=== PATIENT | male | born 1975 | race Caucasian/White ===

== ENCOUNTER 2018-10-04 14:48 | Observation (INO) | payer OTHER, SELFPAY ==
[2018-10-04] VITALS (7 sets, daily range): BP systolic 122–135; BP diastolic 68–93; PULSE 60–89; RESP 14–18; TEMP 36.3–36.6; O2SAT 96–99; BMI 32.5
--- NOTE | 2018-10-04 | DI.ECHO.S_ITS ---
[facility] +---------+ : : [address] : : : : [place], : : : : [place] [address] : : : : Phone: [phone] [id number] Echocardiogram Report + + :Name: CIERA ALBERT V Study Date: 10/05/2018 Height: 69 in : :[facility] Exam Location: [facility] Weight: 220 lb : : Gender: Male BSA: 2.2 m2 : :: 1975 Age: 43 yrs BP: 126/76 mmHg: :Reason For Study: Syncope/ elevated troponin : :Ordering Physician: [place] : :Hospitalist Performed By: Mer Page : :Referring: KIKI JESUS : + + Interpretation Summary The ejection fraction is estimated to be 60-65%. There is no significant valvular heart disease. Procedure: A two-dimensional transthoracic echocardiogram with color flow and Doppler was performed. The study quality was technically adequate. There is no prior echocardiogram noted for this patient. The patient was in normal sinus rhythm during the exam. Left Ventricle: The left ventricle is normal in size, wall thickness, and systolic function without any focal wall motion abnormalities. The ejection fraction is estimated to be 60-65%. Left ventricular wall motion is normal. Diastolic parameters suggest probable normal left ventricular diastolic function and normal filling pressures. Right Ventricle: The right ventricle is mildly dilated. The right ventricular systolic function is normal. Atria: The left atrium is mildly dilated. Right atrial size is normal. There is no Doppler evidence for an interatrial shunt. Mitral Valve: The mitral valve is normal in structure and function. There is trace mitral regurgitation. Aortic Valve: The aortic valve is trileaflet. The aortic valve opens well. There is trace aortic regurgitation. Tricuspid Valve: The tricuspid valve is normal in structure and function. There is a trace or physiologic amount of tricuspid regurgitation. Right ventricular systolic pressure is estimated to be 16 mmHg plus the clinically estimated CVP which cannot be estimated on this exam. Pulmonic Valve: The pulmonic valve is not well visualized. There is a trace or physiologic amount of pulmonic regurgitation. Great Vessels: The aortic root is normal size. The ascending aorta is mildly enlarged. The pulmonary artery is not well visualized, but is probably normal size. The inferior vena cava was not well visualized. Pericardium/ Pleura There is no pericardial effusion. There is no pleural effusion. MMode/2D Measurements & Calculations LVIDd: 4.4 cm AoV Openin.4 cm LVIDs: 2.6 cm Ao root diam: 3.5 cm IVSd: 0.91 cm asc Aorta Diam: 3.5 cm LVPWd: 1.0 cm LV lozano. diameter/BSA (cm/m^2): 2.0 LV sys. diameter/BSA (cm/m^2): 1.2 FS: 41.4 % EPSS: 0.06 cm LA A2 area: 22.8 cm2 RA long axis: 5.5 cm LA A4 area: 26.5 cm2 RA area: 16.6 cm2 LA length (vol): 6.6 cm RA vol: 42.6 ml LA vol: 77.7 ml RA : 19.8 ml/m2 LA vol index: 36.1 ml/m2 RVD1 (basal): 4.8 cm RVD2 (mid): 4.5 cm TAPSE: 2.2 cm Doppler Measurements & Calculations Ao V2 max: 121.7 cm/sec LVOT Max Jignesh: 99.2 cm/sec Ao V2 mean: 86.7 cm/sec LV V1 max P.9 mmHg Ao V2 VTI: 25.0 cm LV V1 VTI: 20.8 cm Ao max P.9 mmHg Ao mean P.3 mmHg sev ratio: 0.83 MV E max jignesh: 68.7 cm/sec MV A max jignesh: 59.9 cm/sec MV E/A: 1.1 Med Peak E' Jignesh: 7.5 cm/sec E/E' med: 9.1 Lat Peak E' Jignesh: 11.4 cm/sec E/E' lat: 6.1 E/e' average: 7.6 MV dec time: 0.16 sec TR max jignesh: 201.8 cm/sec MV P1/2t: 48.6 msec TR max P.3 mmHg MVA(P1/2t): 4.5 cm2 PA V2 max: 62.6 cm/sec PA V2 mean: 46.2 cm/sec PA mean P.92 mmHg PA Accel Time: 0.13 sec Reading Physician:02:46 PM
--- NOTE | 2018-10-04 17:06 | DI.RAD.S_ITS ---
PROCEDURE: XR CHEST 2V INDICATIONS: syncope TECHNIQUE: 2 views of the chest were acquired. COMPARISON: None. FINDINGS: Surgical changes and devices: None. Lungs and pleura: An incomplete inspiratory result is noted, causing a crowded appearance to the lung markings. No focal infiltrates are seen. No pneumothorax or significant pleural effusions are seen. Mediastinum: Mediastinal contours are normal. Heart size is normal. Bones and chest wall: No suspicious bony abnormalities. Soft tissues appear unremarkable. IMPRESSION: No acute cardiopulmonary process is seen. Dictated by: Wagner Dai M.D. on 10/04/2018 at 16:32 Approved by: Wagner Dai M.D. on 10/04/2018 at 16:33
[2018-10-04 17:07] LABS: Add Manual Diff / Slide Review NO; Basophils Absolute Auto 0 /uL (0-100); Basophils Percent Auto 0.2 % (0-2); Eosinophils Absolute Auto 0 /uL (0-450); Eosinophils Percent Auto 0.1 % (2-4); Hematocrit 51.2 % (41-53); Hemoglobin 17.5 g/dL (13.5-17.5); Lymphocytes Absolute Auto 1200 /uL (1100-4500); Lymphocytes Percent Auto 6.2 % (25-40); Mean Corpuscular HGB Conc 34.3 % (30-36); Mean Corpuscular Hemoglobin 31.9 PG (26-34); Monocytes Absolute Auto 1600 /uL (0-900); Monocytes Percent Auto 8.1 % (3-14); Neutrophils Absolute Auto 16500 /uL (1500-7000); Neutrophils Percent Auto 85.4 % (50-75); Platelet Count 388 X10^3/uL (150-400); Red Cell Distribution Width 12.8 % (11.6-14.8); White Blood Cell Count 19.3 X10^3/uL (4.5-11.0)
[2018-10-04 17:10] LABS: Alanine Aminotransferase 46 IU/L (21-72); Albumin 3.9 g/dL (3.5-5.0); Albumin Globulin Ratio 1.3 (1.0-2.8); Alkaline Phosphatase 57 U/L (38-126); Aspartate Aminotransferase 27 IU/L (17-59); Bilirubin Total 0.7 mg/dL (0.2-1.3); Blood Urea Nitrogen 17 mg/dL (9-20); Calcium 9.1 mg/dL (8.4-10.2); Carbon Dioxide 23 mmol/L (22-32); Chloride 108 mmol/L (98-107); Estimated Glomerular Filt Rate > 60.0 mL/min (>60); Glucose 107 mg/dL (70-100); HEMOLYSIS < 15 (0-50); Potassium 3.9 mmol/L (3.4-5.1); Sodium 140 mmol/L (137-145); Total Protein 6.9 g/dL (6.3-8.2)
[2018-10-04] MEDS: SODIUM CHLORIDE 0.9% 1,000 ML 1000 ML IV (17:15)
[2018-10-04 17:21] LABS: Troponin I 0.027 ng/mL (0.01-0.034)
[2018-10-04 18:03] LABS: Creatine Kinase 54 U/L (55-170)
[2018-10-04 18:16] LABS: Troponin I 0.045 ng/mL (0.01-0.034)
[2018-10-04] MEDS: ASPIRIN 81 MG TAB 324 MG PO (18:35)
[2018-10-04 19:49] LABS: Add Manual Diff / Slide Review NO; Basophils Absolute Auto 100 /uL (0-100); Basophils Percent Auto 0.6 % (0-2); Eosinophils Absolute Auto 0 /uL (0-450); Eosinophils Percent Auto 0.1 % (2-4); Hematocrit 47.3 % (41-53); Hemoglobin 16.2 g/dL (13.5-17.5); Lymphocytes Absolute Auto 1700 /uL (1100-4500); Mean Corpuscular HGB Conc 34.3 % (30-36); Mean Corpuscular Hemoglobin 31.7 PG (26-34); Mean Corpuscular Volume 92.3 fL (80-100); Monocytes Absolute Auto 900 /uL (0-900); Monocytes Percent Auto 7.5 % (3-14); Neutrophils Absolute Auto 9500 /uL (1500-7000); Neutrophils Percent Auto 77.8 % (50-75); Platelet Count 349 X10^3/uL (150-400); Red Blood Cell Count 5.12 X10^6/uL (4.5-5.9); Red Cell Distribution Width 12.6 % (11.6-14.8); White Blood Cell Count 12.2 X10^3/uL (4.5-11.0)
[2018-10-04 20:02] LABS: Creatine Kinase 51 U/L (55-170)
--- NOTE | 2018-10-04 20:14 | ED_ITS ---
HPI - Syncope <CYNDIE Reilly - Last Filed: 10/04/18 21:18> General Chief Complaint: Syncope Stated Complaint: Syncope Time Seen by Provider: 10/04/18 16:49 Source: patient Mode of arrival: ambulatory Limitations: no limitations History of Present Illness HPI narrative: The patient is a 43-year-old male nonsmoker with history of elevated blood sugar presents with a chief complaint of syncope after PT earlier today. He states he ran a mile and a half, felt really warm and tried to go down. Then he syncopized for 10 seconds several times. He denies any chest pain shortness of breath fever nausea vomiting or diarrhea. He denies any nausea vomiting diarrhea fever chest pain shortness of breath palpitations or chest heaviness. He denies any associated symptoms. He denies any symptoms since his previous syncope. He states when he did syncopized he did not hit his head. Related Data Home Medications Medication Instructions Recorded Confirmed No Known Home Medications 10/04/18 10/04/18 Allergies Allergy/AdvReac Type Severity Reaction Status Date / Time No Known Drug Allergies Allergy Verified 10/04/18 14:55 Review of Systems <CYNDIE Reilly - Last Filed: 10/04/18 21:18> Review of Systems GENERAL: Denies chills, fatigue, malaise, fever, sweats. HEENT: Denies sinus pain, ear pain, sore throat, difficulty swallowing, dizziness. RESPIRATORY: Denies dyspnea, cough, wheezing, hemoptysis, sputum. CARDIOVASCULAR: See HPI GASTROINTESTINAL: Denies nausea, vomiting, abdominal pain, diarrhea, constipation, melena. : Denies dysuria, frequency, incontinence, hematuria, urinary retention. MUSCULOSKELETAL: denies weakness, joint pain, or bony pain SKIN: Denies rash, skin lesions, or other NEUROLOGIC: Denies weakness, headache, numbness, change in speech, confusion, seizures, incoordination. PSYCHIATRIC: No concerning psychosocial issues. 12 point review of systems is negative except for those stated above PFSH <CYNDIE Reilly - Last Filed: 10/04/18 21:18> Social History household members: other Smoking Status: Never smoker Social History household members: other Smoking Status: Never smoker Exam <ROSSY Reilly - Last Filed: 10/04/18 21:18> Narrative Exam Narrative: GENERAL: This is a well-nourished, well-developed patient, no acute distress HEAD: Atraumatic. Normocephalic. No temporal or scalp tenderness. EYES: Pupils equal round and reactive. Extraocular motions intact. No scleral icterus. No injection or drainage. ENT: Nose without bleeding, purulent drainage or septal hematoma. Throat without erythema, tonsillar hypertrophy or exudate. Uvula midline. Airway patent. NECK: Trachea midline. No JVD or lymphadenopathy. Supple, nontender, no meningeal signs. CARDIOVASCULAR: Regular rate and rhythm without murmurs, gallops, or rubs. RESPIRATORY: Clear to auscultation. Breath sounds equal bilaterally. No wheezes, rales, or rhonchi. GASTROINTESTINAL: Abdomen soft, non-tender, nondistended. No hepato- splenomegaly, or palpable masses. No guarding. EXTREMITIES: No clubbing, cyanosis, or edema. No joint tenderness, effusion, or edema noted. BACK: Nontender without deformity or crepitance. No flank tenderness. NEURO: AOx3. No slurred speech. Cranial nerves grossly intact. SKIN: No rash or erythema. Initial Vital Signs Initial Vital Signs: Vital Signs Temperature 97.9 F 10/04/18 15:18 Pulse Rate 89 10/04/18 15:18 Respiratory Rate 18 10/04/18 15:18 Blood Pressure 133/81 10/04/18 15:18 Pulse Oximetry 98 10/04/18 15:18 <Socrates Colvin DO - Last Filed: 10/04/18 22:24> Initial Vital Signs Initial Vital Signs: Vital Signs Temperature 97.9 F 10/04/18 15:18 Pulse Rate 89 10/04/18 15:18 Respiratory Rate 18 10/04/18 15:18 Blood Pressure 133/81 10/04/18 15:18 Pulse Oximetry 98 10/04/18 15:18 Course <CYNDIE Reilly - Last Filed: 10/04/18 21:18> Orders Ordered: ED Orders 10/04/18 16:29 EKG-12 Lead Stat 10/04/18 16:35 Complete Blood Count AUTO DIFF Stat Comprehensive Metabolic Panel Stat Troponin I Stat 10/04/18 17:06 XR chest 2V Stat 10/04/18 17:45 Troponin & CK Cardiac Panel Stat 10/04/18 19:30 Complete Blood Count AUTO DIFF Stat Troponin & CK Cardiac Panel Stat Discontinued Medications Aspirin (Aspirin Chew) 324 mg PO NOW ONE Stop: 10/04/18 18:25 Last Admin: 10/04/18 18:35 Dose: 324 mg Sodium Chloride (Normal Saline 0.9%) 1,000 mls @ 1,000 mls/hr IV BOLUS ONE Stop: 10/04/18 18:08 Last Infusion: 10/04/18 20:37 Dose: 0 mls/hr Admin: 10/04/18 17:15 Dose: 1,000 mls/hr Vital Signs - 8 hr 10/04/18 15:18 10/04/18 18:36 10/04/18 19:00 Temperature 97.9 F Pulse Rate 89 82 73 Respiratory Rate 18 14 18 Blood Pressure 133/81 Blood Pressure [Right Arm] 125/68 129/75 Pulse Oximetry 98 98 98 10/04/18 19:30 10/04/18 20:31 10/04/18 21:15 Temperature 97.6 F Pulse Rate 69 66 65 Respiratory Rate 18 18 18 Blood Pressure 135/82 Blood Pressure [Right Arm] 122/74 126/90 Pulse Oximetry 96 99 98 <Socrates Colvin, DO - Last Filed: 10/04/18 22:24> Orders Ordered: ED Orders 10/04/18 16:29 EKG-12 Lead Stat 10/04/18 16:35 Complete Blood Count AUTO DIFF Stat Comprehensive Metabolic Panel Stat Troponin I Stat 10/04/18 17:06 XR chest 2V Stat 10/04/18 17:45 Troponin & CK Cardiac Panel Stat 10/04/18 19:30 Complete Blood Count AUTO DIFF Stat Troponin & CK Cardiac Panel Stat Discontinued Medications Aspirin (Aspirin Chew) 324 mg PO NOW ONE Stop: 10/04/18 18:25 Last Admin: 10/04/18 18:35 Dose: 324 mg Sodium Chloride (Normal Saline 0.9%) 1,000 mls @ 1,000 mls/hr IV BOLUS ONE Stop: 10/04/18 18:08 Last Infusion: 10/04/18 20:37 Dose: 0 mls/hr Admin: 10/04/18 17:15 Dose: 1,000 mls/hr Vital Signs - 8 hr 10/04/18 15:18 10/04/18 18:36 10/04/18 19:00 Temperature 97.9 F Pulse Rate 89 82 73 Respiratory Rate 18 14 18 Blood Pressure 133/81 Blood Pressure [Right Arm] 125/68 129/75 Pulse Oximetry 98 98 98 10/04/18 19:30 10/04/18 20:31 10/04/18 21:15 Temperature 97.6 F Pulse Rate 69 66 65 Respiratory Rate 18 18 18 Blood Pressure 135/82 Blood Pressure [Right Arm] 122/74 126/90 Pulse Oximetry 96 99 98 MDM - Syncope <SHAYNA Reilly-BC - Last Filed: 10/04/18 21:18> Lab Data Result diagrams: 10/04/18 19:30 10/04/18 16:35 Lab Results 10/04/18 10/04/18 10/04/18 Range/Units 16:35 16:35 17:45 WBC 19.3 H (4.5-11.0) X10^3/uL RBC 5.50 (4.5-5.9) X10^6/uL Hgb 17.5 (13.5-17.5) g/dL Hct 51.2 (41-53) % MCV 93.0 (80-100) fL MCH 31.9 (26-34) PG MCHC 34.3 (30-36) % RDW 12.8 (11.6-14.8) % Plt Count 388 (150-400) X10^3/uL Neut % (Auto) 85.4 H (50-75) % Lymph % (Auto) 6.2 L (25-40) % Powell % (Auto) 8.1 (3-14) % Eos % (Auto) 0.1 L (2-4) % Baso % (Auto) 0.2 (0-2) % Neut # (Auto) 74207 H (2412-2610) /uL Lymph # (Auto) 1200 (4783-8359) /uL Powell # (Auto) 1600 H (0-900) /uL Eos # (Auto) 0 (0-450) /uL Baso # (Auto) 0 (0-100) /uL Sodium 140 (137-145) mmol/L Potassium 3.9 (3.4-5.1) mmol/L Chloride 108 H (98-107) mmol/L Carbon Dioxide 23 (22-32) mmol/L BUN 17 (9-20) mg/dL Creatinine 1.00 (0.66-1.25) mg/dL Estimated GFR > 60.0 (>60) mL/min BUN/Creatinine Ratio 17.0 (6-22) Glucose 107 H (70-100) mg/dL Calcium 9.1 (8.4-10.2) mg/dL Total Bilirubin 0.7 (0.2-1.3) mg/dL AST 27 (17-59) IU/L ALT 46 (21-72) IU/L Alkaline Phosphatase 57 (38-126) U/L Total Creatine Kinase 54 L (55-170) U/L CK-MB (CK-2) TNP CK-MB (CK-2) Rel Index TNP Troponin I 0.027 0.045 H (0.01-0.034) ng/mL Total Protein 6.9 (6.3-8.2) g/dL Albumin 3.9 (3.5-5.0) g/dL Globulin 3.0 (1.7-4.1) g/dL Albumin/Globulin Ratio 1.3 (1.0-2.8) 10/04/18 10/04/18 Range/Units 19:30 19:30 WBC 12.2 H (4.5-11.0) X10^3/uL RBC 5.12 (4.5-5.9) X10^6/uL Hgb 16.2 (13.5-17.5) g/dL Hct 47.3 (41-53) % MCV 92.3 (80-100) fL MCH 31.7 (26-34) PG MCHC 34.3 (30-36) % RDW 12.6 (11.6-14.8) % Plt Count 349 (150-400) X10^3/uL Neut % (Auto) 77.8 H (50-75) % Lymph % (Auto) 14.0 L (25-40) % Powell % (Auto) 7.5 (3-14) % Eos % (Auto) 0.1 L (2-4) % Baso % (Auto) 0.6 (0-2) % Neut # (Auto) 9500 H (0807-9129) /uL Lymph # (Auto) 1700 (3902-5118) /uL Powell # (Auto) 900 (0-900) /uL Eos # (Auto) 0 (0-450) /uL Baso # (Auto) 100 (0-100) /uL Sodium (137-145) mmol/L Potassium (3.4-5.1) mmol/L Chloride (98-107) mmol/L Carbon Dioxide (22-32) mmol/L BUN (9-20) mg/dL Creatinine (0.66-1.25) mg/dL Estimated GFR (>60) mL/min BUN/Creatinine Ratio (6-22) Glucose (70-100) mg/dL Calcium (8.4-10.2) mg/dL Total Bilirubin (0.2-1.3) mg/dL AST (17-59) IU/L ALT (21-72) IU/L Alkaline Phosphatase (38-126) U/L Total Creatine Kinase 51 L (55-170) U/L CK-MB (CK-2) TNP CK-MB (CK-2) Rel Index TNP Troponin I 0.050 H (0.01-0.034) ng/mL Total Protein (6.3-8.2) g/dL Albumin (3.5-5.0) g/dL Globulin (1.7-4.1) g/dL Albumin/Globulin Ratio (1.0-2.8) Urine Dip Bedside Urine Glucose Negative Bedside Urine Bilirubin - Negative Bedside Urine Ketone - Negative Urine Specific [place] 1.030 Bedside Urine Occult Blood - Negative Bedside Urine pH 5.5 Bedside Urine Protein +/- 15 Bedside Urine Urobilinogen - Negative Bedside Urine Nitrite - Negative Bedside Urine Leukocytes - Negative Esterase Imaging Data Chest x-ray: Radiologist's impression: Bhavya Joseph V 43 M [address] [address] XRay Report Signed Patient: Bhavya Joseph VMR#: [id number] : 1975Acct:[id number] Age/Sex: 43 / MDate of Service: 10/04/18 Loc: ED Accession Number: [id number] Procedure: XR chest 2V Ordering Provider: Юлия Orr WEB APPLICATIONS ADMINISTRATOR- PROCEDURE: XR CHEST 2V INDICATIONS: syncope TECHNIQUE: 2 views of the chest were acquired. COMPARISON: None. FINDINGS: Surgical changes and devices: None. Lungs and pleura: An incomplete inspiratory result is noted, causing a crowded appearance to the lung markings. No focal infiltrates are seen. No pneumothorax or significant pleural effusions are seen. Mediastinum: Mediastinal contours are normal. Heart size is normal. Bones and chest wall: No suspicious bony abnormalities. Soft tissues appear unremarkable. IMPRESSION: No acute cardiopulmonary process is seen. Dictated by: Wagner Dai M.D. on 10/04/2018 at 16:32 Approved by: Wagner Dai M.D. on 10/04/2018 at 16:33 ECG Data Attestation: I personally reviewed and interpreted this ECG as follows: Interpretation: Sinus rhythm. Ventricular rate 96. No ST elevation or depression. No ectopy. Viewed by Dr. Barrett KRISHNAMURTHY Narrative Medical decision making narrative: The patient is a 43-year-old male who presents after an episode of syncope. He is asymptomatic upon arrival to the emergency department. He denies any chest pain shortness of breath or symptoms at this point time. He does have an indeterminate troponin. This given his combination of syncope and troponin of 0.05, I contacted our hospitalist VINITA for admission. Given the patient's syncope is slightly elevated troponin, I feel he needs more workup at this point time. He is hemodynamically stable and pain-free throughout his stay in the emergency department, remaining on telemetry without incident. The patient was kindly admitted to the hospitalist Alhaji TALAMANTES for further evaluation including trending troponins as well as an echocardiogram and possible stress test. Patient has no questions or concerns upon admission. <Socrates Colvin, DO - Last Filed: 10/04/18 22:24> Lab Data Lab Results 10/04/18 10/04/18 10/04/18 Range/Units 16:35 16:35 17:45 WBC 19.3 H (4.5-11.0) X10^3/uL RBC 5.50 (4.5-5.9) X10^6/uL Hgb 17.5 (13.5-17.5) g/dL Hct 51.2 (41-53) % MCV 93.0 (80-100) fL MCH 31.9 (26-34) PG MCHC 34.3 (30-36) % RDW 12.8 (11.6-14.8) % Plt Count 388 (150-400) X10^3/uL Neut % (Auto) 85.4 H (50-75) % Lymph % (Auto) 6.2 L (25-40) % Powell % (Auto) 8.1 (3-14) % Eos % (Auto) 0.1 L (2-4) % Baso % (Auto) 0.2 (0-2) % Neut # (Auto) 14288 H (3462-0672) /uL Lymph # (Auto) 1200 (1552-2687) /uL Powell # (Auto) 1600 H (0-900) /uL Eos # (Auto) 0 (0-450) /uL Baso # (Auto) 0 (0-100) /uL Sodium 140 (137-145) mmol/L Potassium 3.9 (3.4-5.1) mmol/L Chloride 108 H (98-107) mmol/L Carbon Dioxide 23 (22-32) mmol/L BUN 17 (9-20) mg/dL Creatinine 1.00 (0.66-1.25) mg/dL Estimated GFR > 60.0 (>60) mL/min BUN/Creatinine Ratio 17.0 (6-22) Glucose 107 H (70-100) mg/dL Calcium 9.1 (8.4-10.2) mg/dL Total Bilirubin 0.7 (0.2-1.3) mg/dL AST 27 (17-59) IU/L ALT 46 (21-72) IU/L Alkaline Phosphatase 57 (38-126) U/L Total Creatine Kinase 54 L (55-170) U/L CK-MB (CK-2) TNP CK-MB (CK-2) Rel Index TNP Troponin I 0.027 0.045 H (0.01-0.034) ng/mL Total Protein 6.9 (6.3-8.2) g/dL Albumin 3.9 (3.5-5.0) g/dL Globulin 3.0 (1.7-4.1) g/dL Albumin/Globulin Ratio 1.3 (1.0-2.8) 10/04/18 10/04/18 Range/Units 19:30 19:30 WBC 12.2 H (4.5-11.0) X10^3/uL RBC 5.12 (4.5-5.9) X10^6/uL Hgb 16.2 (13.5-17.5) g/dL Hct 47.3 (41-53) % MCV 92.3 (80-100) fL MCH 31.7 (26-34) PG MCHC 34.3 (30-36) % RDW 12.6 (11.6-14.8) % Plt Count 349 (150-400) X10^3/uL Neut % (Auto) 77.8 H (50-75) % Lymph % (Auto) 14.0 L (25-40) % Powell % (Auto) 7.5 (3-14) % Eos % (Auto) 0.1 L (2-4) % Baso % (Auto) 0.6 (0-2) % Neut # (Auto) 9500 H (4742-1647) /uL Lymph # (Auto) 1700 (5190-2515) /uL Powell # (Auto) 900 (0-900) /uL Eos # (Auto) 0 (0-450) /uL Baso # (Auto) 100 (0-100) /uL Sodium (137-145) mmol/L Potassium (3.4-5.1) mmol/L Chloride (98-107) mmol/L Carbon Dioxide (22-32) mmol/L BUN (9-20) mg/dL Creatinine (0.66-1.25) mg/dL Estimated GFR (>60) mL/min BUN/Creatinine Ratio (6-22) Glucose (70-100) mg/dL Calcium (8.4-10.2) mg/dL Total Bilirubin (0.2-1.3) mg/dL AST (17-59) IU/L ALT (21-72) IU/L Alkaline Phosphatase (38-126) U/L Total Creatine Kinase 51 L (55-170) U/L CK-MB (CK-2) TNP CK-MB (CK-2) Rel Index TNP Troponin I 0.050 H (0.01-0.034) ng/mL Total Protein (6.3-8.2) g/dL Albumin (3.5-5.0) g/dL Globulin (1.7-4.1) g/dL Albumin/Globulin Ratio (1.0-2.8) Urine Dip Bedside Urine Glucose Negative Bedside Urine Bilirubin - Negative Bedside Urine Ketone - Negative Urine Specific [place] 1.030 Bedside Urine Occult Blood - Negative Bedside Urine pH 5.5 Bedside Urine Protein +/- 15 Bedside Urine Urobilinogen - Negative Bedside Urine Nitrite - Negative Bedside Urine Leukocytes - Negative Esterase Discharge Plan Departure Patient Disposition: Admitted as Observation Clinical Impression: Elevated troponin Syncope Qualifiers: Syncope type: unspecified Qualified Code(s): R55 - Syncope and collapse Discharge Date/Time: 10/04/18 21:25 Interventions: ED Discharge Assessment Last Done: 10/04/18 21:10 Admit Date/Time: 10/04/18 20:39 Admit Provider: Harlan Mane <Socrates Colvin DO - Last Filed: 10/04/18 22:24> Cosign ED Attending Cosignature Attestation: I was available for consultation during this patient's emergency department encounter
--- NOTE | 2018-10-04 22:44 | PC.NURSE ---
Pt arrived from the ED @ 2114 A/O x 3, had episode of syncope earlier in day. Denies any discomfort. Tele in place. HL LFA intact/patent. Pt oriented to room ans call system. Call light w/in reach, calls appropriately for needs.
[2018-10-04 23:02] LABS: Magnesium 2.2 mg/dL (1.6-2.3)
--- NOTE | 2018-10-04 23:05 | PM.HP.1 ---
History of Present Illness Time Patient Seen: 21:51 Chief complaint: Syncope Narrative: Bhavya sweeney is a 43-year-old male patient with a past medical history only significant for prediabetes and heat rash presents to the emergency department following 2 syncopal episodes. The [place] after completing approximately a mi and a half he began to feel overheated. He reports this to be a recurrent phenomenon during which time he will develop a heat rash. He has previously been told to take a lukewarm shower cool slowly which he did after which he developed lower extremity flushing and facial pallor. The patient states he had decreasing vision, felt weak and became lightheaded. His green jobs trainer was with him and after sitting down he became had a witnessed syncopal episode reportedly approximately 10 seconds for which he spontaneously recovered and then had a 2nd occurrence lasting approximately 20 seconds. During this time the patient had no chest pain or palpitations, shortness of breath cough or wheezing. The patient is had no prodromal symptoms but does report that he had cold symptoms 2 weeks ago including sore throat while snowboarding in [facility] at altitude. The patient has since been snowboarding at [facility] in [place]. The patient denies previous episodes of syncope and has had no headaches, fevers or chills, abdominal pain nausea or vomiting, constipation or diarrhea. In the emergency department the patient is found to be afebrile at 97.9 a heart rate 89 and blood pressure of 133/81. He is 98% oxygen saturation on room air. He had a chest x-ray taken which shows no acute cardiopulmonary disease. His 12 lead EKG does reveal small Q-waves in leads 3 and AVF. On CBC he does have an elevated WBC count at 19.3 on admission which is reduced on recheck down to 12.2. His chemistries are within normal range with a nonfasting glucose 107. His CK is low and initial had a negative troponin and on recheck was found to be elevated at 0.045 and the 3rd troponin at 0.050. The patient is admitted for further monitoring and evaluation of syncope and elevated serum troponin Patient History Medical History (Updated 10/04/18 @ 23:13 by VINITA Correia) Heat rash (Acute) Pre-diabetes (Acute) Surgical History History of ankle surgery (Acute) History of nasal surgery (Acute) History of surgery on wrist (Acute) Status post left foot surgery (Acute) Family History (Updated 10/04/18 @ 23:10 by VINITA Correia) Father Diabetes mellitus Mother In good health Brother In good health Son In good health Social History household members: other Smoking Status: Never smoker Family & Social History Family History (Updated 10/04/18 @ 23:10 by VINITA Correia) Father Diabetes mellitus Mother In good health Brother In good health Son In good health Social History: household members other Prior Living Arrangements House Safety & Behavioral: Feels Safe in Current Yes Environment Been Physically Hurt or No Threatened By a Person Suicidal Ideation Description None Suicide Plan Description No Plan Tobacco & Substance use: Smoking Status Never smoker alcohol intake frequency holiday/special occasion Substance Use Type does not use Comment: 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 His father is a type 1 diabetic but his mother and brothers and son are all in good health. Smoking: Patient has never smoked Alcohol: Patient consumes a couple of drinks per week Substance use: Patient denies recreation pharmaceuticals herbal or cannabis products Advanced directives: The patient does not have an advanced directive however he is full code and designates his to be surrogate decision maker. Meds Home Medications Medication Instructions Recorded Confirmed Type No Known Home Medications 10/04/18 10/04/18 History Allergies Allergy/AdvReac Type Severity Reaction Status Date / Time No Known Drug Allergies Allergy Verified 10/04/18 14:55 Review of Systems Review of Systems All systems reviewed & are unremarkable except as noted in HPI and below Exam Vital Signs (past 8 hours): - 10/04/18 15:18 10/04/18 18:36 10/04/18 19:00 Temperature 97.9 F Pulse Rate 89 82 73 Respiratory Rate 18 14 18 Blood Pressure 133/81 Blood Pressure [Right Arm] 125/68 129/75 Pulse Oximetry 98 98 98 10/04/18 19:30 10/04/18 20:31 10/04/18 21:15 Temperature 97.6 F Pulse Rate 69 66 65 Respiratory Rate 18 18 18 Blood Pressure 135/82 Blood Pressure [Right Arm] 122/74 126/90 Pulse Oximetry 96 99 98 Oxygen Delivery Method Room Air Narrative Exam Narrative: GENERAL APPEARANCE: well developed, overweight male with BMI of 32.5 who is afebrile and in no acute distress. HEAD: Normocephalic, atraumatic, no scalp lesions. EYES: pupils equal, round, reactive to light and accommodation, sclera non-icteric, extraocular movement intact . EARS: normal external structures, no ear pain NOSE: sinuses non tender to percussion, no rhinorrhea ORAL CAVITY: mucosa moist without lesions or exudate, palate normal, tongue in midline. THROAT: normal, no erythema, no exudate, pharynx normal, uvula midline. NECK/THYROID: neck supple, no jugular venous distention, no carotid bruit, no thyromegaly, trachea midline. LYMPH NODES: no cervical or supraclavicular lymphadenopathy. SKIN: warm and dry, no suspicious lesions, no rashes, good turgor. HEART: regular rate and rhythm, S1-S2 without murmur, no rubs or gallops, brisk capillary refill, no edema LUNGS: clear to auscultation bilaterally, no coarseness crackles or wheezing, no cough present CHEST: Symmetrical movement, no accessory muscle use, no pain to AP and lateral compression. ABDOMEN: Soft, round, no epigastric or abdominal tenderness on palpation, no guarding or peritoneal signs, no organomegaly, no flank or suprapubic tenderness, active bowel tones. BACK: Normal curvature, nontender to palpation, no CVA tenderness on percussion EXTREMITIES: moves all extremities, strength is 5/5 and symmetrical, well perfused. NEUROLOGIC: AAO x4, no focal neurologic deficits, cranial nerves II-XII grossly intact , motor strength normal upper and lower extremities, sensory exam intact to light touch, hearing grossly normal to speech. PSYCH: alert, cognitive function intact, good eye contact, stable mood with congruent affect Objective Labs Result Diagrams: 10/04/18 19:30 10/04/18 16:35 Labs: Laboratory Results - last 24 hr 10/04/18 10/04/18 10/04/18 16:35 16:35 17:45 WBC 19.3 H RBC 5.50 Hgb 17.5 Hct 51.2 MCV 93.0 MCH 31.9 MCHC 34.3 RDW 12.8 Plt Count 388 Neut % (Auto) 85.4 H Lymph % (Auto) 6.2 L [place] % (Auto) 8.1 Eos % (Auto) 0.1 L Baso % (Auto) 0.2 Neut # (Auto) 08090 H Lymph # (Auto) 1200 [place] # (Auto) 1600 H Eos # (Auto) 0 Baso # (Auto) 0 Sodium 140 Potassium 3.9 Chloride 108 H Carbon Dioxide 23 BUN 17 Creatinine 1.00 Estimated GFR > 60.0 BUN/Creatinine Ratio 17.0 Glucose 107 H Calcium 9.1 Magnesium Total Bilirubin 0.7 AST 27 ALT 46 Alkaline Phosphatase 57 Total Creatine Kinase 54 L CK-MB (CK-2) TNP CK-MB (CK-2) Rel Index TNP Troponin I 0.027 0.045 H Total Protein 6.9 Albumin 3.9 Globulin 3.0 Albumin/Globulin Ratio 1.3 10/04/18 10/04/18 10/04/18 19:30 19:30 19:43 WBC 12.2 H RBC 5.12 Hgb 16.2 Hct 47.3 MCV 92.3 MCH 31.7 MCHC 34.3 RDW 12.6 Plt Count 349 Neut % (Auto) 77.8 H Lymph % (Auto) 14.0 L [place] % (Auto) 7.5 Eos % (Auto) 0.1 L Baso % (Auto) 0.6 Neut # (Auto) 9500 H Lymph # (Auto) 1700 [place] # (Auto) 900 Eos # (Auto) 0 Baso # (Auto) 100 Sodium Potassium Chloride Carbon Dioxide BUN Creatinine Estimated GFR BUN/Creatinine Ratio Glucose Calcium Magnesium 2.2 Total Bilirubin AST ALT Alkaline Phosphatase Total Creatine Kinase 51 L CK-MB (CK-2) TNP CK-MB (CK-2) Rel Index TNP Troponin I 0.050 H Total Protein Albumin Globulin Albumin/Globulin Ratio Assessment & Plan Assessment & Plan narrative: Patient is a 43-year-old male who was admitted to the hospital for further evaluation syncope and elevated serum troponin. 1. Syncopal episode, acute -patient with 2 witnessed syncopal episodes brief in duration, 1st was 10 seconds, 2nd was 20 seconds. Patient spontaneously recovered. -no prodromal body flushing facial pallor occurring immediately post exercise. No prior history syncope. -no anemia, electrolytes and renal function are within normal limits, nonfasting glucose 107. -12 lead EKG without evidence of ectopy bundle-branch block or ischemia, Q-waves in lead 3 and AVF. Patient reports decreased exercise tolerance over the last 2 years. -recent travel from [place] in last 2 weeks. No complaints of chest pain or shortness of breath. Will obtain a D-dimer. -will track troponins, obtain echocardiogram and nuclear med stress test. 2. Elevated serum troponin, acute -patient denies chest pain, palpitations or shortness of breath -no history hypertension, hyperlipidemia but has history of pre diabetes. No family cardiac history. -serial troponins: 0.027, 0 0.045, 0.050. -12 lead EKG without ectopy, block or ischemia, Q-waves in lead 3 and AVF. -follow troponin, obtain lipid panel -echocardiogram and stress test as above. 3. Prediabetes, chronic -patient reports blood sugar manage with diet, on no anti hyperglycemic medication -patient overweight with BMI of 32.5 -serum glucose on admission testing is 107 mg dL. -will recheck chemistries in the morning and obtain hemoglobin A1c. The patient is admitted to the hospital following 2 syncopal episodes and need for ongoing monitoring and evaluation. The patient is admitted observation status with expected length of stay to be less than 2 midnights. Scores GCS Leta coma scale eye opening: Spontaneous Leta coma scale verbal response: Orientated Leta coma scale motor response: Obey commands Leta coma scale total score: 15 Quality VTE Deep Vein Thrombosis/Pulmonary Embolism Present on Admission: No
[2018-10-04 23:56] LABS: D Dimer 1543 ng/mL (<230)
[2018-10-05] VITALS: O2SAT 97
--- NOTE | 2018-10-05 | DI.CT.S_ITS ---
PROCEDURE: CT ANGIO CHEST PE PROTOCOL INDICATIONS: Syncope, elevated D-Dimer, long airplane flight. TECHNIQUE: After the administration of intravenous contrast, 2 mm thick sections acquired from the pulmonary apices to the posterior costophrenic angles. 3-dimensional maximum intensity projection (MIP) coronal and sagittal reformats were then acquired through the thorax. For radiation dose reduction, the following was used: automated exposure control, adjustment of mA and/or kV according to patient size. COMPARISON: [facility], CR, XR CHEST 2V, 10/04/2018, 17:06. FINDINGS: Image quality: Excellent. Pulmonary arteries: Pulmonary arteries are normal in size, and demonstrate no intraluminal filling defects to suggest central pulmonary embolism. Lungs and pleura: There is mild dependent atelectasis bilaterally. No focal consolidation. No pleural effusions or pneumothorax. Central and peripheral airways are patent. Mediastinum: Heart size is normal, without pericardial effusion. No mediastinal or hilar adenopathy. Thoracic aorta is normal in caliber and enhancement. Esophagus is normal in caliber, without hiatal hernia. Bones and chest wall: No suspicious bony lesions. Ribs and thoracic spine appear intact throughout. Thyroid gland demonstrates no discrete nodules. No axillary or supraclavicular adenopathy. Abdomen: Visualized upper abdomen demonstrates heterogeneous attenuation of the liver likely reflecting heterogeneous fatty infiltration. IMPRESSION: 1. No evidence of pulmonary embolism. 2. Heterogeneous attenuation of the liver likely representing fatty infiltration. Dictated by: Stewart Dennis M.D. on 10/05/2018 at 9:07 Approved by: Stewart Dennis M.D. on 10/05/2018 at 9:13
[2018-10-05 04:55] VITALS: BP 105/58; PULSE 67; RESP 16; TEMP 36.4; O2SAT 93
[2018-10-05 06:03] LABS: Add Manual Diff / Slide Review NO; Basophils Absolute Auto 0 /uL (0-100); Basophils Percent Auto 0.4 % (0-2); Eosinophils Absolute Auto 100 /uL (0-450); Eosinophils Percent Auto 1.7 % (2-4); Hematocrit 42.3 % (41-53); Hemoglobin 15.2 g/dL (13.5-17.5); Lymphocytes Absolute Auto 2300 /uL (1100-4500); Lymphocytes Percent Auto 30.4 % (25-40); Mean Corpuscular HGB Conc 35.9 % (30-36); Mean Corpuscular Hemoglobin 32.8 PG (26-34); Mean Corpuscular Volume 91.5 fL (80-100); Monocytes Absolute Auto 800 /uL (0-900); Monocytes Percent Auto 10.5 % (3-14); Neutrophils Absolute Auto 4400 /uL (1500-7000); Platelet Count 304 X10^3/uL (150-400); Red Blood Cell Count 4.62 X10^6/uL (4.5-5.9); Red Cell Distribution Width 12.6 % (11.6-14.8); White Blood Cell Count 7.7 X10^3/uL (4.5-11.0)
[2018-10-05 06:05] LABS: BUN Creatinine Ratio 16.7 (6-22); Blood Urea Nitrogen 15 mg/dL (9-20); Calcium 8.5 mg/dL (8.4-10.2); Carbon Dioxide 23 mmol/L (22-32); Chloride 108 mmol/L (98-107); Estimated Glomerular Filt Rate > 60.0 mL/min (>60); Glucose 90 mg/dL (70-100); HEMOLYSIS < 15 (0-50); Potassium 3.7 mmol/L (3.4-5.1); Sodium 138 mmol/L (137-145)
[2018-10-05 06:17] LABS: Hemoglobin A1C% w Est Avg Glu 4.9 % (4.0-6.0); Troponin I 0.025 ng/mL (0.01-0.034)
[2018-10-05 06:25] LABS: Cholesterol 143 mg/dL (140-199); HDL Cholesterol 32 mg/dL (40-60); LDL Cholesterol Calculated 92 mg/dL (<100); Triglycerides 96 mg/dL (35-150)
[2018-10-05 07:20] VITALS: BP 126/76; PULSE 75; RESP 16; TEMP 36.4; O2SAT 95
--- NOTE | 2018-10-05 08:56 | CM.DANOTE ---
DCP: Case received, EMR reviewed and met with patient. Introduced self and role. DCP template completed with information currently available. Patient is a 43 year old male who admitted yesterday evening to the care of the hospitalist team. PCP: Aviation medicine at [facility]. Payer: confirmed: Rosendo Feldman. Patient came to hospital via ambulance secondary to syncopal episode while exercising. [place], and became dizzy. 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 Has a and son, is in [place]. Met briefly with patient. Alert and oriented, independent. Stated, he had become dizzy and flushed, and wasn't sure if he was just overheated. He stated, he is normally in good health. Patient had echo this morning, and will be having a stress test today as well. P: DCP to continue to follow closely. Patient should be able to go home when he is medically stable. Elisa Willard RN/Business Operations Director
[2018-10-05] MEDS: SODIUM CHLORIDE 0.9% FLUSH 10 ML IV (08:57)
[2018-10-05] MEDS: ENOXAPARIN 40 MG/0.4 ML SYRINGE SUBCUT (08:57)
--- NOTE | 2018-10-05 11:44 | PC.NURSE ---
ECHO at bedside 1135.
[2018-10-05 12:24] VITALS: BP 126/76; PULSE 64; RESP 16; TEMP 36.6; O2SAT 95
--- NOTE | 2018-10-05 14:57 | PC.NURSE ---
Day Shift Note: Patient doing very well this shift. Patient had CT, ECHO and NST during this shift. Patient pleasant, denies pain, no dizziness or nausea. Awaiting new orders s/p NST. Patient hoping to discharge home this evening.
[2018-10-05 16:00] VITALS: O2SAT 95
[2018-10-05 16:27] VITALS: BP 124/80; PULSE 70; RESP 20; TEMP 36.6; O2SAT 96
--- NOTE | 2018-10-05 17:48 | PM.DS.1 ---
History of Present Illness Chief complaint: Syncope Narrative: Bhavya sweeney is a 43-year-old male patient with a past medical history only significant for prediabetes and heat rash presents to the emergency department following 2 syncopal episodes. The [place] after completing approximately a mi and a half he began to feel overheated. He reports this to be a recurrent phenomenon during which time he will develop a heat rash. He has previously been told to take a lukewarm shower cool slowly which he did after which he developed lower extremity flushing and facial pallor. The patient states he had decreasing vision, felt weak and became lightheaded. His resident athletic trainer was with him and after sitting down he became had a witnessed syncopal episode reportedly approximately 10 seconds for which he spontaneously recovered and then had a 2nd occurrence lasting approximately 20 seconds. During this time the patient had no chest pain or palpitations, shortness of breath cough or wheezing. The patient is had no prodromal symptoms but does report that he had cold symptoms 2 weeks ago including sore throat while snowboarding in [facility] at altitude. The patient has since been snowboarding at [facility] in [place]. The patient denies previous episodes of syncope and has had no headaches, fevers or chills, abdominal pain nausea or vomiting, constipation or diarrhea. In the emergency department the patient is found to be afebrile at 97.9 a heart rate 89 and blood pressure of 133/81. He is 98% oxygen saturation on room air. He had a chest x-ray taken which shows no acute cardiopulmonary disease. His 12 lead EKG does reveal small Q-waves in leads 3 and AVF. On CBC he does have an elevated WBC count at 19.3 on admission which is reduced on recheck down to 12.2. His chemistries are within normal range with a nonfasting glucose 107. His CK is low and initial had a negative troponin and on recheck was found to be elevated at 0.045 and the 3rd troponin at 0.050. The patient is admitted for further monitoring and evaluation of syncope and elevated serum troponin Discharge Providers Date of admission: 10/04/18 20:39 Discharge Date: 10/05/18 Consults: 10/04/18 22:45 Consult to Discharge Planning Routine Comment: Discharge provider: Andrade Knight MD Summary Discharge Diagnosis: 1. Syncope Hospital Course: Patient was admitted due to episode of syncope while on treadmill. His initial troponin was intermediate but trended down and he ruled out for acute WA. Workup in hospital included: -transthoracic echo: Normal LV and RV function, normal valvular function -myocardial perfusion treadmill stress test: Exercise for 10 minutes achieving target heart rate, no ST changes, normal perfusion scan -CTA: Normal, without evidence of pulmonary embolism (ruled out due to elevated D-dimer) -telemetry: Normal Patient has negative cardiopulmonary evaluation for situational syncope while on treadmill. He is stable to discharge home. He is advised to maintain good fluid intake before, during and after exercise. He also had noted recent problem with heat rash associated with exercise which it may be benefit for to have outpatient dermatology consultation. Exam Vital Signs (past 8 hours): - 10/05/18 12:24 10/05/18 16:00 10/05/18 16:27 Temperature 97.8 F 97.8 F Pulse Rate 64 70 Respiratory Rate 16 20 Blood Pressure 126/76 124/80 Pulse Oximetry 95 95 96 Oxygen Delivery Method Room Air Oxygen Flow Rate 0 Objective Labs Result Diagrams: 10/05/18 05:04 10/05/18 05:04 Labs: Laboratory Results - last 24 hr 10/04/18 10/04/18 10/04/18 16:55 17:45 19:30 WBC RBC Hgb Hct MCV MCH MCHC RDW Plt Count Neut % (Auto) Lymph % (Auto) [place] % (Auto) Eos % (Auto) Baso % (Auto) Neut # (Auto) Lymph # (Auto) [place] # (Auto) Eos # (Auto) Baso # (Auto) D-Dimer 1543 H Sodium Potassium Chloride Carbon Dioxide BUN Creatinine Estimated GFR BUN/Creatinine Ratio Glucose Hemoglobin A1c Calcium Magnesium Total Creatine Kinase 54 L 51 L CK-MB (CK-2) TNP TNP CK-MB (CK-2) Rel Index TNP TNP Troponin I 0.045 H 0.050 H Triglycerides Cholesterol LDL Cholesterol, Calc HDL Cholesterol TSH 10/04/18 10/04/18 10/05/18 19:30 19:43 05:04 WBC 12.2 H RBC 5.12 Hgb 16.2 Hct 47.3 MCV 92.3 MCH 31.7 MCHC 34.3 RDW 12.6 Plt Count 349 Neut % (Auto) 77.8 H Lymph % (Auto) 14.0 L [place] % (Auto) 7.5 Eos % (Auto) 0.1 L Baso % (Auto) 0.6 Neut # (Auto) 9500 H Lymph # (Auto) 1700 [place] # (Auto) 900 Eos # (Auto) 0 Baso # (Auto) 100 D-Dimer Sodium Potassium Chloride Carbon Dioxide BUN Creatinine Estimated GFR BUN/Creatinine Ratio Glucose Hemoglobin A1c Calcium Magnesium 2.2 Total Creatine Kinase CK-MB (CK-2) CK-MB (CK-2) Rel Index Troponin I Triglycerides 96 Cholesterol 143 LDL Cholesterol, Calc 92 HDL Cholesterol 32 L TSH 10/05/18 10/05/18 10/05/18 05:04 05:04 05:04 WBC 7.7 RBC 4.62 Hgb 15.2 Hct 42.3 MCV 91.5 MCH 32.8 MCHC 35.9 RDW 12.6 Plt Count 304 Neut % (Auto) 57.0 D Lymph % (Auto) 30.4 [place] % (Auto) 10.5 Eos % (Auto) 1.7 L Baso % (Auto) 0.4 Neut # (Auto) 4400 Lymph # (Auto) 2300 [place] # (Auto) 800 Eos # (Auto) 100 Baso # (Auto) 0 D-Dimer Sodium 138 Potassium 3.7 Chloride 108 H Carbon Dioxide 23 BUN 15 Creatinine 0.90 Estimated GFR > 60.0 BUN/Creatinine Ratio 16.7 Glucose 90 Hemoglobin A1c 4.9 Calcium 8.5 Magnesium Total Creatine Kinase CK-MB (CK-2) CK-MB (CK-2) Rel Index Troponin I 0.025 Triglycerides Cholesterol LDL Cholesterol, Calc HDL Cholesterol TSH 10/05/18 05:04 WBC RBC Hgb Hct MCV MCH MCHC RDW Plt Count Neut % (Auto) Lymph % (Auto) [place] % (Auto) Eos % (Auto) Baso % (Auto) Neut # (Auto) Lymph # (Auto) [place] # (Auto) Eos # (Auto) Baso # (Auto) D-Dimer Sodium Potassium Chloride Carbon Dioxide BUN Creatinine Estimated GFR BUN/Creatinine Ratio Glucose Hemoglobin A1c Calcium Magnesium Total Creatine Kinase CK-MB (CK-2) CK-MB (CK-2) Rel Index Troponin I Triglycerides Cholesterol LDL Cholesterol, Calc HDL Cholesterol TSH 1.10 Discharge Plan Discharge Plan Patient Disposition: Home Discharge Med Rec/Prescriptions Prescriptions: No Action No Known Home Medications RF: 0 Provider Discharge Instructions Diet: Regular Discharge Data Attending Provider: Harlan Mane Admit Date/Time: 10/04/18 20:39 Quality VTE Deep Vein Thrombosis/Pulmonary Embolism Present on Admission: No
--- NOTE | 2018-10-05 17:52 | P.DS_ITS ---
History of Present Illness Chief complaint: Syncope Narrative: Bhavya sweeney is a 43-year-old male patient with a past medical history only significant for prediabetes and heat rash presents to the emergency department following 2 syncopal episodes. [place] after completing approximately a mi and a half he began to feel overheated. He reports this to be a recurrent p henomenon during which time he will develop a heat rash. He has previously been told to take a lukewarm shower cool slowly which he did after which he developed lower extremity flushing and facial pallor. The patient states he had decreasing vision, felt weak and became lightheaded. His small engine trainer was with him and after sitting down he became had a witnessed syncopal episode reportedly approximately 10 seconds for which he spontaneously recovered and then had a 2nd occurrence lasting approximately 20 seconds. During this time the patient had no chest pain or palpitations, shortness of breath cough or wheezing. The patient is had no prodromal symptoms but does report that he had cold symptoms 2 weeks ago including sore throat while snowboarding in [facility] at altitude. The patient has since been snowboarding at [facility] in [place]. The patient denies previous episodes of syncope and has had no headaches, fevers or chills, abdominal pain nausea or vomiting, constipation or diarrhea. In the emergency department the patient is found to be afebrile at 97.9 a heart rate 89 and blood pressure of 133/81. He is 98% oxygen saturation on room air. He had a chest x-ray taken which shows no acute cardiopulmonary disease. His 12 lead EKG does reveal small Q-waves in leads 3 and AVF. On CBC he does have an elevated WBC count at 19.3 on admission which is reduced on recheck down to 12.2. His chemistries are within normal range with a nonfasting glucose 107. His CK is low and initial had a negative troponin and on recheck was found to be elevated at 0.045 and the 3rd troponin at 0.050. The patient is admitted for further monitoring and evaluation of syncope and elevated serum troponin Discharge Providers Date of admission: 10/04/18 20:39 Discharge Date: 10/05/18 Consults: 10/04/18 22:45 Consult to Discharge Planning Routine Comment: Discharge provider: Andrade Knight MD Summary Discharge Diagnosis: 1. Syncope Hospital Course: Patient was admitted due to episode of syncope while on treadmill. His initial troponin was intermediate but trended down and he ruled out for acute CO. Workup in hospital included: -transthoracic echo: Normal LV and RV function, normal valvular function -myocardial perfusion treadmill stress test: Exercise for 10 minutes achieving target heart rate, no ST changes, normal perfusion scan -CTA: Normal, without evidence of pulmonary embolism (ruled out due to elevated D-dimer) -telemetry: Normal Patient has negative cardiopulmonary evaluation for situational syncope while on treadmill. He is stable to discharge home. He is advised to maintain good fluid intake before, during and after exercise. He also had noted recent problem with heat rash associated with exercise which it may be benefit for to have outpatient dermatology consultation. Exam Vital Signs (past 8 hours): - 10/05/18 12:24 10/05/18 16:00 10/05/18 16:27 Temperature 97.8 F 97.8 F Pulse Rate 64 70 Respiratory Rate 16 20 Blood Pressure 126/76 124/80 Pulse Oximetry 95 95 96 Oxygen Delivery Method Room Air Oxygen Flow Rate 0 Objective Labs Result Diagrams: 10/05/18 05:04 10/05/18 05:04 Labs: Laboratory Results - last 24 hr 10/04/18 10/04/18 10/04/18 16:55 17:45 19:30 WBC RBC Hgb Hct MCV MCH MCHC RDW Plt Count Neut % (Auto) Lymph % (Auto) Carbon % (Auto) Eos % (Auto) Baso % (Auto) Neut # (Auto) Lymph # (Auto) Carbon # (Auto) Eos # (Auto) Baso # (Auto) D-Dimer 1543 H Sodium Potassium Chloride Carbon Dioxide BUN Creatinine Estimated GFR BUN/Creatinine Ratio Glucose Hemoglobin A1c Calcium Magnesium Total Creatine Kinase 54 L 51 L CK-MB (CK-2) TNP TNP CK-MB (CK-2) Rel Index TNP TNP Troponin I 0.045 H 0.050 H Triglycerides Cholesterol LDL Cholesterol, Calc HDL Cholesterol TSH 10/04/18 10/04/18 10/05/18 19:30 19:43 05:04 WBC 12.2 H RBC 5.12 Hgb 16.2 Hct 47.3 MCV 92.3 MCH 31.7 MCHC 34.3 RDW 12.6 Plt Count 349 Neut % (Auto) 77.8 H Lymph % (Auto) 14.0 L Carbon % (Auto) 7.5 Eos % (Auto) 0.1 L Baso % (Auto) 0.6 Neut # (Auto) 9500 H Lymph # (Auto) 1700 Carbon # (Auto) 900 Eos # (Auto) 0 Baso # (Auto) 100 D-Dimer Sodium Potassium Chloride Carbon Dioxide BUN Creatinine Estimated GFR BUN/Creatinine Ratio Glucose Hemoglobin A1c Calcium Magnesium 2.2 Total Creatine Kinase CK-MB (CK-2) CK-MB (CK-2) Rel Index Troponin I Triglycerides 96 Cholesterol 143 LDL Cholesterol, Calc 92 HDL Cholesterol 32 L TSH 10/05/18 10/05/18 10/05/18 05:04 05:04 05:04 WBC 7.7 RBC 4.62 Hgb 15.2 Hct 42.3 MCV 91.5 MCH 32.8 MCHC 35.9 RDW 12.6 Plt Count 304 Neut % (Auto) 57.0 D Lymph % (Auto) 30.4 Carbon % (Auto) 10.5 Eos % (Auto) 1.7 L Baso % (Auto) 0.4 Neut # (Auto) 4400 Lymph # (Auto) 2300 Carbon # (Auto) 800 Eos # (Auto) 100 Baso # (Auto) 0 D-Dimer Sodium 138 Potassium 3.7 Chloride 108 H Carbon Dioxide 23 BUN 15 Creatinine 0.90 Estimated GFR > 60.0 BUN/Creatinine Ratio 16.7 Glucose 90 Hemoglobin A1c 4.9 Calcium 8.5 Magnesium Total Creatine Kinase CK-MB (CK-2) CK-MB (CK-2) Rel Index Troponin I 0.025 Triglycerides Cholesterol LDL Cholesterol, Calc HDL Cholesterol TSH 10/05/18 05:04 WBC RBC Hgb Hct MCV MCH MCHC RDW Plt Count Neut % (Auto) Lymph % (Auto) Carbon % (Auto) Eos % (Auto) Baso % (Auto) Neut # (Auto) Lymph # (Auto) Carbon # (Auto) Eos # (Auto) Baso # (Auto) D-Dimer Sodium Potassium Chloride Carbon Dioxide BUN Creatinine Estimated GFR BUN/Creatinine Ratio Glucose Hemoglobin A1c Calcium Magnesium Total Creatine Kinase CK-MB (CK-2) CK-MB (CK-2) Rel Index Troponin I Triglycerides Cholesterol LDL Cholesterol, Calc HDL Cholesterol TSH 1.10 Discharge Plan Discharge Plan Patient Disposition: Home Discharge Med Rec/Prescriptions Prescriptions: No Action No Known Home Medications RF: 0 Provider Discharge Instructions Diet: Regular Discharge Data Attending Provider: Harlan Mane Admit Date/Time: 10/04/18 20:39 Quality VTE Deep Vein Thrombosis/Pulmonary Embolism Present on Admission: No
--- NOTE | 2018-10-05 18:20 | DI.NM.S_ITS ---
DATE OF SERVICE: 10/05/2018 PROCEDURE: Exercise perfusion study. INDICATIONS: Syncope with underlying prediabetes, obesity. RADIOPHARMACEUTICAL: 25.1 mCi technetium-99m Myoview IV was injected at stress. Please note, this is exercise stress perfusion study only. CARDIAC STRESS: Patient underwent exercise perfusion study under the supervision of an attending staff. She walked on Toy protocol for 10 minutes and achieved 91% of target heart rate, normal blood pressure response, functional aerobic impairment of positive 10% and 12.8 METs of workload. Baseline rhythm was sinus. Exercise EKG did not reveal any convincing ischemic changes. There were no significant arrhythmias. No chest pain or significant symptoms reported. RAW DATA: There appears to be adequate myocardial uptake. GATED STUDY: Stress LV ejection fraction 79% without any obvious wall motion abnormalities. Stress LV end-diastolic volume is 96 mL. Lung/heart ratio is 0.27, which is within normal limits. MYOCARDIAL PERFUSION: There was normal myocardial perfusion. CONCLUSION: I will call this study a normal myocardial perfusion study. Patient walked on Toy protocol for 10 minutes, achieved 12.8 METs of workload. No significant ischemic changes. No significant arrhythmias. Normal blood pressure and heart rate response. Overall, this is a low-risk myocardial perfusion scan. Bhavya Joseph - JOSE DANIEL/britney/ doc#: [id number]/job#: [id number] dd: 10/05/2018 17:12:00 dt: 10/05/2018 18:14:00 DICTATING /COPIES TO: Ryann Pascual MD COPIES MNE: GETACHEW
--- NOTE | 2018-10-05 18:33 | PC.NURSE ---
pt alert and oriented. no pain, no n/v. no light headedness. pt escorted by director of rehabilitation and wellness to ER exit. pt refused wheelchair.
== END 2018-10-05 18:25 | disposition home or self-care (01) ==
LOC: ED 20:36 → AC 20:41
PROVIDERS: Admitting Provider Nurse Practitioner Adult Health; Emergency Provider Nurse Practitioner Family; Visit Provider Nurse Practitioner Adult Health
DX: R55 Syncope and collapse (principal); R73.03 Prediabetes
CPT/HCPCS: 36415; 71046; 71275; 78451; 80048; 80053; 80061; 81003; 82550; 83036; 83735; 84443; 84484; 85025; 85379; 93005; 93016; 93017; 93018; 93306; 96360; 96361; 96372; 99283; 99285; G0378; A9502; J1650; Q9967